=== PATIENT | female | born 1975 ===

== ENCOUNTER → 2019-12-31 | Emergency (ER) | payer SELFPAY ==
[~2019-12-31] MED LIST: Adacel (T-DAP) 0.5 ML SYRINGE ONE; Amoxicillin/Potassium Clav 875 MG TAB ONE
== END ==
LOC: BURERS 21:06
DX: S41.152A Open bite of left upper arm, initial encounter (principal); S80.812A Abrasion, left lower leg, initial encounter; S80.811A Abrasion, right lower leg, initial encounter; S40.811A Abrasion of right upper arm, initial encounter; F41.9 Anxiety disorder, unspecified; F32.9 Major depressive disorder, single episode, unspecified; Z23 Encounter for immunization; W55.01XA Bitten by cat, initial encounter
CPT/HCPCS: 90471; 90715